=== PATIENT | female | born 1970 | race Caucasian/White ===

== ENCOUNTER 2024-08-24 06:53 | Inpatient (IN) | payer OTHER, SELFPAY ==
[2024-08-23 23:20] VITALS: BMI 35.1
[2024-08-23 23:21] VITALS: BP 153/91
--- NOTE | 2024-08-23 23:56 | ED.GENMED ---
History of Present Illness
General
Chief Complaint: Chest Pain
Source: patient and family
Exam Limitations: none
Time Seen by Provider: 08/23/24 23:52
Nursing documentation reviewed up to this point in time: agreed with
History of Present Illness
History of Present Illness:
54-year-old female, history HTN, had TKR [address] De Los Santos, states she is healing well as far as that goes but at 12:00 this afternoon she developed sudden onset of nausea after her physical therapy. She took Zofran at 1:30 PM with a little
help. She has been nauseous all day (no vomiting) and took another Zofran at 930 this evening. At 8 PM she ate some chicken fried rice and a short while later developed pain under her right shoulder blade through to the same level of her chest as
well as right upper quadrant pain. The pain is constant, now 7/10 and burning. She took 10 mg of oxycodone at 10 PM. Her last bowel movement was 2 days ago prior to her surgery.
Denies fever or chills. Denies chest pain or trouble breathing
Past History
Past History
ED Past Medical History: Negative Asthma, GERD, HTN, Hypercholesterolemia, NIDDM or Hypothyroidism
ED Past Surgical History: Other (Uterus ablation)
Social History
Tobacco: Former smoker
Alcohol: Occasional
Personal:
Living: with family
Review of Systems
Review of Systems
Allergies reviewed?: Yes
All Other Systems: ROS reviewed and negative except as documented in HPI and ROS
Constitutional: Denies fever or chills
Respiratory: Denies trouble breathing
Cardiac: Denies chest pain
ABD/GI: Reports abdominal pain, nausea and anorexia; Denies vomiting, diarrhea, bloody stools or black stools
: Denies dysuria or difficulty voiding
Musculoskeletal: Reports other (Left knee 3 days post surgery healing well)
Neurological: Reports no symptoms
Phy Exam
Physical Exam
Physical Exam:
GENERAL: No acute distress. A&Ox3.
CONSTITUTIONAL: Afebrile.
EYES: clear, conjunctivae normal
ENMT: moist mucus membranes, Pharynx nl
RESPIRATORY: Regular respirations, nonlabored, lungs clear.
CARDIOVASCULAR: Regular rate and rhythm, no murmurs, no rubs.
GI: Soft, obese, no significant tenderness to deep palpation at this time , normal BS
MUSCULOSKELETAL: Moves with ease. Well perfused.
SKIN: Warm, dry, pink
PSYCH: Normal mood and affect. Well kept, interactive and appropriate
NEUROLOGIC: Awake, alert and oriented. No focal neurological deficits
Course
Orders/Labs/Results
Orders:
Orders
08/23/24 23:25
Electrocardiogram (*1) Urgent
Reason for Study: Chest Pain
EKG- Treatment ONCE
08/23/24 23:28
Complete Blood Count/With Diff Urgent
Comprehensive Metabolic Panel Urgent
Lipase Urgent
Troponin I Urgent
08/24/24 00:18
US Abdomen Complete/Upper Urgent
Comment:
Reason For Exam: RUQ and back pain p eating, nausea
08/24/24 02:03
0.9% Sodium Chloride 1000 ml [Nss] 1,000 ml IV BOLUS
HYDROmorphone [Dilaudid] 0.5 mg IV NOW STA
Ondansetron Injectable [Zofran] 4 mg IV NOW STA
08/24/24 02:05
HYDROmorphone [Dilaudid] 0.5 mg .ROUTE .STK-MED ONE
Abnormal Lab Results
08/24/24
00:08
MPV 11.4 H fL
(7.4-10.4)
Abs Immat Gran (auto) 0.2 H 10^3/uL
(0-0.05)
Absolute Monos (auto) 0.8 H 10^3/uL
(0.1-0.6)
Immature Gran % 2.0 H %
(0-0.5)
Lymphocytes % 16.9 L %
(20.5-51.1)
Monocytes % 11.1 H %
(1.7-9.3)
Sodium 133 L mmol/L
(135-145)
BUN 24 H mg/dl
(7-17)
Glucose 163 H mg/dl
(70-99)
Total Protein 6.2 L g/dl
(6.3-8.2)
Lipase 944 H U/L
(23-300)
08/24/24 00:08
08/24/24 00:08
Vital Signs
Initial and Last Documented VS:
Initial Vital Signs
Temp Pulse Resp BP Pulse Ox
98.5 F 79 16 153/91 99
08/23/24 23:21 08/23/24 23:21 08/23/24 23:21 08/23/24 23:21 08/23/24 23:21
Last Documented Vital Signs
Temp Pulse Resp BP Pulse Ox
98.5 F 62 11 148/84 96
08/23/24 23:21 08/24/24 00:45 08/24/24 00:45 08/24/24 00:10 08/24/24 00:45
MDM/Problems Addressed
Differential Diagnosis Includes:
cholecystitis, biliary colic, pancreatitis
MDM/Problems Addressed:
54-year-old female, history HTN, had TKR [address] De Los Santos, states she is healing well as far as that goes but at 12:00 this afternoon she developed sudden onset of nausea after her physical therapy. She took Zofran at 1:30 PM with a little
help. She has been nauseous all day (no vomiting) and took another Zofran at 930 this evening. At 8 PM she ate some chicken fried rice and a short while later developed pain under her right shoulder blade through to the same level of her chest as
well as right upper quadrant pain. The pain is constant, now 7/10 and burning. She took 10 mg of oxycodone at 10 PM. Her last bowel movement was 2 days ago prior to her surgery.
Denies fever or chills. Denies chest pain or trouble breathing
Afebrile, appears moderately uncomfortable due to pain
EKG NSR
CBC normal
CMP with no clinically significant abnormality
Lipase elevated at 944
Preliminary radiology report of upper abdominal ultrasound: Normal gallbladder, no gallstones or sludge, negative Cotto sign, no biliary dilatation. Visualized liver, pancreas, spleen and bilateral kidneys without acute abnormality.
08/24/2024 2:15 AM
Hospitalist notified of admission.
Dx: Acute pancreatitis
*EKG
EKG Intrepretation Date: 08/23/24
Interpretation: normal
Heart Rate: 75
Rate: normal
Rhythm: sinus
Marydel: normal axis
Interval: normal interval
QRS Pattern: normal QRS
Ischemia: no ischemia
ED Attending Note
-
Portions of this chart may have been created with voice recognition software.� Occasional wrong word or��sound alike� substitutions may have occurred due to the inherent limitations of voice recognition software.
Discharge Plan
Departure
Patient Disposition: Admit
Date of Disposition: 08/24/24
Time of Disposition: 02:13
Admit to: Med/Surg
Presentation/result/management discussed w/ accepting MD/DO: Hospitalist
Condition: Fair
Discharge Problem:
Acute pancreatitis
Prescriptions:
No Action
ondansetron HCl [Zofran] 4 mg Tablet
4 mg PO Q6H
aspirin [Adult Low Dose Aspirin] 81 mg Tablet,Delayed Release (Dr/Ec)
81 mg PO DAILY
dexamethasone [Decadron] 4 mg Tablet
4 mg PO BID
docusate sodium [Colace] 100 mg Capsule
100 mg PO TID PRN (Reason: constipation)
celecoxib [Celebrex] 100 mg Capsule
100 mg PO BID
acetaminophen [Tylenol Extra Strength] 500 mg Capsule
1,000 mg PO Q6H PRN (Reason: pain)
oxycodone 5 mg Tablet
5 mg PO Q4H PRN (Reason: pain)
Rx Instructions:
take 1-2 tablets for severe pain every 4-6 hours as needed
Referrals:
UNKNOWN - PT NOT,[facility] [Family Provider] -
Interventions
Interventions:
*Risk Screen - Suicide Last Done: 08/24/24 00:17
*General Assessment Last Done: 08/23/24 23:21
*Neglect/Abuse Screening Last Done: 08/24/24 00:17
*ED COVID-19 Vaccine History Last Done: 08/23/24 23:21
ED- Cardiac Assessment Last Done: 08/24/24 00:16
Discharge Date and Time
Print Language: [place]LAND[place]
[2024-08-24] VITALS (9 sets, daily range): BP systolic 127–154; BP diastolic 66–86; BMI 33.4
[2024-08-24 00:32] LABS: ALT (SGPT) 22 U/L (0-35); AST (SGOT) 23 U/L (14-36); Albumin 3.8 g/dl (3.5-5.0); Alkaline Phosphatase 62 U/L (38-126); Blood Urea Nitrogen 24 mg/dl (7-17); Carbon Dioxide 28 mmol/L (22-30); Chloride 101 mmol/L (98-107); Estimated Creatinine Clearance 112 ml/min; Glucose 163 mg/dl (70-99); Lipase 944 U/L (23-300); Potassium 4.3 mmol/L (3.5-5.1); Sodium 133 mmol/L (135-145); Total Bilirubin 0.9 mg/dl (0.2-1.3); Total Protein 6.2 g/dl (6.3-8.2); eGFR > 60.00
[2024-08-24 00:34] LABS: % Basophils 0.1 % (0-2); % Lymphocytes 16.9 % (20.5-51.1); % Monocytes 11.1 % (1.7-9.3); % Neutrophils 69.9 % (42.2-75.2); Absolute Immature Granulocytes 0.2 10^3/uL (0-0.05); Absolute Lymphocytes 1.3 10^3/uL (1.2-3.4); Absolute Monocytes 0.8 10^3/uL (0.1-0.6); Absolute Neutrophils 5.3 10^3/uL (1.4-6.5); Hematocrit 37.9 % (37.0-47.0); Hemoglobin 12.8 g/dL (12.0-16.0); Mean Corp Hgb Conc. 33.8 g/dL (33.0-37.0); Mean Corpuscular Hgb 30.4 pg (27.0-31.0); Mean Platelet Volume 11.4 fL (7.4-10.4); Nucleated Red Blood Cells % 0 %; Platelet Count 194 10^3/uL (130-400); Red Blood Cell Count 4.21 10^6/uL (4.20-5.40); Red Cell Dist. Width 13.2 % (11.5-14.5); White Blood Cell Count 7.6 10^3/uL (4.8-10.8)
[2024-08-24 00:42] LABS: Troponin I < 0.012 ng/ml
[2024-08-24] MEDS: ZOFRAN 4 MG IV (02:09)
[2024-08-24] MEDS: DILAUDID 0.5 MG IV ×3 (02:09→06:15)
[2024-08-24] MEDS: NSS 1000 IV ×4 (02:10→20:33)
[2024-08-24] MEDS: FLUSH (NSS) 1 FLUSH IV (03:48)
--- NOTE | 2024-08-24 05:27 | HPS.HSE ---
Family Physician
-
Family Physician: INTER[facility] UNKNOWN - PT NOT
Chief Complaint
-
Abd Pain
History of Present Illness
Patient is a 54y F with PMH significant for hypertension who presents to ED complaining of abdominal pain. Patient underwent L TKA at outpatient center ([facility]) on Wednesday. She had been doing well at home and attended her first outpatient PT
session earlier today. Patient began to feel some nausea this afternoon and took PO Zofran around 1:30 PM. She had no emesis. She was able to eat dinner around 8 PM but following this she developed severe epigastric abdominal pain. She took
another ZXofran around 9PM without improvement in her symptoms. She presented to the ED for further evaluation.
Patient has been taking Celebrex, oxycodone and dexamethasone 4mg BID since her surgery on Wednesday.
She notes that she had been taking Advil 'like candy' due to her knee / arthritis pain - though she stopped this one week prior to her surgery.
Patient denies any prior history of similar symptoms, abdominal pains.
Medical History
Past Medical History
Past Medical History: Reports Other
Additional Past Medical History:
Hypertension
Obesity
Past Surgical History: Reports Other
Additional Past Surgical History:
Left TKA (08/21/24)
Social History
Tobacco: Non-smoker
Alcohol: Occasional (Rare)
Drug: None
Personal:
Living: With Family
Family History
Family History: Not pertinent
Allergies / Home Medications
Allergies reflects when Allergies were last updated in [facility].
Home Medications with original date entered in [facility]
Allergy/Medication List:
Allergies
Allergy/AdvReac Type Severity Reaction Status Date / Time
adhesive Allergy Swelling Verified 01/06/20 15:35
Influenza Virus Vaccines Allergy Unknown Verified 08/23/24 23:23
Home Medications
acetaminophen 500 mg capsule 1,000 mg PO Q6H PRN pain 12/19/24
aspirin 81 mg tablet,delayed release (Adult Low Dose Aspirin) 81 mg PO DAILY 08/24/24
celecoxib 100 mg capsule (Celebrex) 100 mg PO BID 08/24/24
dexamethasone 4 mg tablet 4 mg PO BID 08/24/24
docusate sodium 100 mg capsule (Colace) 100 mg PO TID PRN constipation 08/24/24
ondansetron HCl 4 mg tablet 4 mg PO Q6H 08/24/24
oxycodone 5 mg tablet 5 mg PO Q4H PRN pain 08/24/24
Review of Systems
-
History Source: Patient
A 12 point ROS was completed and negative except as noted: Yes
Constitutional: Reports Fatigue; Denies Fever or Chills
EENT: Denies Sore Throat
Respiratory: Denies Cough or Trouble Breathing
Cardiac: Denies Chest Pain or Palpitations
Abdomen/GI: Reports Abdominal Pain, Nausea and Constipated (last BM was AM prior to surgery.); Denies Vomiting or Diarrhea
: Denies Dysuria or Frequency
Musculoskeletal: Reports Joint Pain and Joint Swelling; Denies Edema
Neurological: Denies Dizzy or Headache
Psych: Denies Depression or Anxiety
Physical Exam
Vital Signs
Vital Signs
Temp Pulse Resp BP Pulse Ox
98.5 F 60 13 138/78 96
08/23/24 23:21 08/24/24 05:00 08/24/24 05:00 08/24/24 03:00 08/24/24 05:00
Physical Exam
General: Other (54y F in moderate distress due to pain.)
HEENT: Moist mucous membranes and PERRLA
Respiratory: Clear; No Wheezes, Rales or Rhonchi
Cardiac: S1/S2 and Regular Rhythm; No Murmur
GI: Soft, Non Distended, Normal Bowel Sounds and Other (Mild epigastric tenderness without rebound / guarding. )
Musculoskeletal: No Clubbing, No Cyanosis and Other (No significant edema. L knee site looks good.)
Neuro: AO x 3
Laboratory Results
-
08/24/24 00:08
08/24/24 00:08
Laboratory Results
Total Bilirubin 0.9 mg/dl (0.2-1.3) 08/24/24 00:08
AST 23 U/L (14-36) 08/24/24 00:08
ALT 22 U/L (0-35) 08/24/24 00:08
Alkaline Phosphatase 62 U/L (38-126) 08/24/24 00:08
Troponin I < 0.012 ng/ml 08/24/24 00:08
Lipase 944 U/L (23-300) H 08/24/24 00:08
Impression/Plan
-
A/P: Patient is a 54y F with PMH significant for hypertension who presents to ED complaining of abdominal pain.
Abdominal Pain
- Admit for further evaluation and treatment.
- Differential includes pancreatitis, ulcer disease / gastritis, etc.
- Lipase elevated at 944. US unremarkable.
- CT A/P without significant intra-abdominal pathology. Mild gallbladder distention.
- NPO, IVF support, pain control, antiemetics, etc.
- Hold further Celebrex, dexamethasone, etc.
- IV PPI BID.
- GI evaluation for additional recommendations.
- Follow for clinical improvement.
s/p L TKA (08/21/24)
- Doing well in regards to knee pain, mobility, etc.
- Continue ASA for DVT prophylaxis.
- Encourage ROM exercises, etc.
- PT / OT evals during stay here.
Post-Op Constipation
- Bowel regimen. Follow for results.
Benign Hypertension
- Hold lisinopril acutely.
- Follow BP and resume when appropriate.
DVT Prophylaxis: SCDs and ASA
Code Status: Full
[2024-08-24] MEDS: TORADOL 15 MG IV (05:34)
[2024-08-24 05:55] LABS: Hematocrit 35.8 % (37.0-47.0); Hemoglobin 12.1 g/dL (12.0-16.0); Mean Corp Hgb Conc. 33.8 g/dL (33.0-37.0); Mean Corpuscular Hgb 30.2 pg (27.0-31.0); Mean Corpuscular Volume 89.3 fL (81.0-99.0); Mean Platelet Volume 11.1 fL (7.4-10.4); Platelet Count 179 10^3/uL (130-400); Red Blood Cell Count 4.01 10^6/uL (4.20-5.40); Red Cell Dist. Width 13.1 % (11.5-14.5); White Blood Cell Count 6.7 10^3/uL (4.8-10.8)
[2024-08-24 06:26] LABS: ALT (SGPT) 20 U/L (0-35); AST (SGOT) 21 U/L (14-36); Albumin 3.4 g/dl (3.5-5.0); Alkaline Phosphatase 46 U/L (38-126); Blood Urea Nitrogen 21 mg/dl (7-17); Calcium 8.6 mg/dl (8.4-10.2); Carbon Dioxide 27 mmol/L (22-30); Chloride 102 mmol/L (98-107); Direct Bilirubin 0.1 mg/dl (0.0-0.4); Estimated Creatinine Clearance > 125 ml/min; Glucose 169 mg/dl (70-99); Potassium 4.6 mmol/L (3.5-5.1); Sodium 134 mmol/L (135-145); Total Bilirubin 0.9 mg/dl (0.2-1.3); Total Protein 5.9 g/dl (6.3-8.2); eGFR > 60.00
--- NOTE | 2024-08-24 07:10 | W.PN.HOSP.TC ---
Today's Communication/Plan
-
Continue IV fluids for suspected acute pancreatitis
Hold further Celebrex
Continue IV PPI
Assessment / Plan
Assessment / Plan
Physical Exam
General: Not in acute distress
HEENT: Moist mucous membranes
Respiratory: Clear to Auscultation Bilaterally
Cardiac: S1/S2 and Regular Rhythm
GI: Soft, Non Distended, Normal Bowel Sounds and Other (Mild epigastric tenderness without rebound / guarding. )
Musculoskeletal: No Cyanosis and Other (No significant edema. L knee site looks good.)
Neuro: AAO x 3
Assessment/Plan
Patient is a 54y F with PMH significant for hypertension who presents to ED complaining of abdominal pain.
Abdominal Pain - differential diagnosis includes pancreatitis, ulcer disease / gastritis, etc.
- Lipase elevated at 944 (>3x upper limit of normal), and together with patient's epigastric and back pain, can very well be acute pancreatitis
- US unremarkable.
- CT A/P without significant intra-abdominal pathology. Mild gallbladder distention.
- NPO, IVF support, pain control, antiemetics, etc.
- Hold further Celebrex, patient also has been taking Tylenol, Oxycodone 5 mg Q4H to Q6H prn, Zofran 4 mg Q6H prn for nausea and Colace
- Complete patient's final 2 doses of PO Decadron today
- Continue Aspirin 325 mg daily (x 4 weeks post-op; surgery was on 08/21/24)
- IV PPI BID.
- GI consulted by karis, appreciate evaluation for additional recommendations.
s/p L TKA (08/21/24) with Dr. De Los Santos
- Doing well in regards to knee pain, mobility, etc.
- Continue ASA for DVT prophylaxis.
- Encourage ROM exercises, etc.
- PT / OT evals during stay here.
Post-Op Constipation
- Bowel regimen. Follow for results.
Benign Hypertension
- Hold lisinopril acutely.
- Follow BP and resume when appropriate.
Marked T10-T11 central canal stenosis
- Follow-up outpatient for this
DVT Prophylaxis: SCDs and ASA
Code Status: Full
Anticipated Discharge: 24 - 48 hours
Subjective/Interval History
-
Date of Service: August 24, 2024
Patient was seen and examined. She reported that her abdominal pain has improved since coming in to the hospital, she denied any chest pain or shortness of breath.
Objective Data
-
Labs:
Laboratory Results
08/24/24 08/24/24
00:08 05:43
WBC 7.6 6.7
Hgb 12.8 12.1
Hct 37.9 35.8 L
Plt Count 194 179
Sodium 133 L 134 L
Potassium 4.3 4.6
Chloride 101 102
Carbon Dioxide 28 27
BUN 24 H 21 H
Creatinine 0.7 0.6
Glucose 163 H 169 H
Calcium 9.0 8.6
Total Bilirubin 0.9 0.9
AST 23 21
ALT 22 20
Alkaline Phosphatase 62 46
Vital Signs:
Vital Signs
Temp Pulse Resp BP Pulse Ox
98.5 F 63 12 144/77 93
08/23/24 23:21 08/24/24 06:30 08/24/24 06:30 08/24/24 06:00 08/24/24 06:30
[2024-08-24] MEDS: COLACE 100 MG PO ×2 (09:43→20:33)
[2024-08-24] MEDS: PROTONIX IV 40 MG IV ×2 (09:46→20:34)
[2024-08-24] MEDS: NSS (PRESERVATIVE FREE) 10 ML IV ×2 (09:46→20:34)
[2024-08-24] MEDS: TYLENOL 1000 MG PO ×2 (09:56→14:07)
[2024-08-24] MEDS: DECADRON 4 MG PO ×2 (10:29→20:34)
[2024-08-24] MEDS: ASPIRIN PO (10:36)
[2024-08-24] MEDS: ASPIR LOW (ENTERIC COATED) 81 MG PO (10:41)
--- NOTE | 2024-08-24 11:09 | CON.GI ---
Addendum entered and electronically signed by Rodney Beyer DO 08/24/24 15:56:
I saw and examined the patient.
The TACTICAL INTELLIGENCE OFFICER's note was reviewed and I agree with the note.
Comment: Ms Mullins is a 54 y.o female with past medical history of HTN and recent TKR two days ago who presented to the ED with epigastric abdominal pain. Patient denies any previous episodes of prior abdominal pain in the past. She was in her
[facility] and recently underwent a L TKR as an outpatient earlier on Wednesday, 08/21. She was felt to be doing well, however after working with PT she developed worsening upper abdominal pain, nausea and radiating symptoms into her back and around her
right/left sides. She was able to eat dinner in the evening however her epigastric abdominal pain recurred and did not deric with her p.o anti-emetics thus prompting her to come to the ED for further evaluation. She has been taking Advil 'like
candy' but denies any melena and/or bloody stools. She also stopped these over one week ago prior to her surgery. In the ED, labs notable for BUN 24, In Service Education Teacher 0.7, normal LFTs and elevated lipase 944. CBC without leukocytosis with WBC 7.6, Hgb 12.8, and
plts 194. Abd US (-) for cholelithiasis, gallbladder wall thickening or biliary tract dilatation and visualized portions of the pancreas without any focal abnormalities. CT Abd/pelvis w/ IV contrast revealed a prominent gallbladder without
cholelithiasis or biliary ductal dilatation and a normal appearing pancreas. Based on her symptoms and repeat lipase (3 x ULN), meets criteria for pancreatitis despite unremarkable prior imaging. Unclear etiology and denies any significant EtOH use
and Abd US (-) for stones. Calcium wnl. No recent lipids. No obvious offending chronic medications causes although did receive prior corticosteroids thus drug-induced pancreatitis is a possibility. However, given that this is her first episode and
age > 40 patient would benefit from an eventual MRI/MRCP as an outpatient in 6-8 weeks. Suspect idiopathic, mild acute pancreatitis given her labs and symptoms. Otherwise, appears her symptoms are improving and tolerating clears without difficulty.
Although she has risk factors for NSAID-induced PUD and recent steroids, given her stable H/h and without any melena would defer any plans for an endoscopic evaluation at this time.
Recommendations:
- Tolerating CLD, may ADAT up to low-fat diet
- Empiric PPI 40 mg BiD given recent NSAIDs
- Obtain lipid panel with AM labs
- Would benefit from eventual MRI/MRCP WWO contrast in 6-8 weeks after resolution of pancreatitis for structural evaluation and r/o any pancreatic cystic lesion/mass
- No plans for an EGD at this time, further patient wishes to hopefully go home tomorrow
- Pain control and IV anti-emetics PRN
- If ongoing improvement into tomorrow, agree with outpatient f/u with GI
- Avoidance of all NSAIDs
- Rest of care per primary team
Discussed with primary internal medicine team this afternoon. GI team will continue to follow while inpatient.
Addendum entered and electronically signed by JAMARCUS Olivas 08/24/24 14:04:
add to below if not improving and persistent symptoms consider EGD to excluded PUD with NSAID/steroid use
Original Note:
Consultation
-
Date/Time Consultation Requested: 08/24/24 0700
Date/Time Consultation Performed: 08/24/24 1100
Requesting Provider: Ricky Wynn DO
Performing Provider: JAMARCUS Westfall, Rodney Beyer DO
Reason for Consultation: elevated lipase
Medical History
Chief Complaint / HPI
Chief Complaint: nausea/shoulder pain
History of Present Illness:
Pt is a 54yo with hx HTN, uterine ablation and TKR 2 days ago with admission with onset of nausea with physical therapy. She states after nausea she also developed pain in upper abdomen into back and right shoulder that is improving today. She
admits to increased NSAID use prior to surgery and combination of Celebrex, ASA, Decadron and Oxycodone taken post -op. She has BM Wednesday prior to surgery but no stools since darren time. On admission hbg 12 but noted normal LFT's with lipase [address] with Somewhat prominent gallbladder without stones. If there is a clinical concern for cholelithiasis, suggest ultrasound for more complete evaluation.Us abdomen with No evidence of cholelithiasis, gallbladder wall thickening
or biliary tract dilatation. visualized portions of head/body of pancreas demonstrate no focal abnormality No hx gallbladder issues in past. Denies GPL1 use for wt loss.
Pt also admit to recent 40 lbs intentional wt loss prior to surgery. She otherwise denied dysphagia, vomiting, diarrhea, constipation, rectal bleeding. change in stool or urine color. No hx EGD or colonoscopy in past.
Past Medical History
Past Medical History: HTN
Past Surgical History: Gynecological (uterine ablation)
Social History
Tobacco: Former Smoker
Alcohol: Occasional
Drug: None
Personal:
Living: With Family
Family History
Family History: Other (no family hx colon Ca or polyps)
Allergies / Home Medications
Allergy/AdvReac Type Severity Reaction Status Date / Time
adhesive Allergy Swelling Verified 01/06/20 15:35
Influenza Virus Vaccines Allergy Unknown Verified 08/23/24 23:23
�Medication �Instructions �Recorded
acetaminophen 500 mg capsule 1,000 mg PO Q6H PRN pain 08/24/24
aspirin 81 mg tablet,delayed 81 mg PO DAILY Blood Clot 08/24/24
release (Adult Low Dose Aspirin) Prevention/Tx
celecoxib 100 mg capsule (Celebrex) 100 mg PO BID Pain 08/24/24
dexamethasone 4 mg tablet 4 mg PO .BID FOR 2 MORE DOSE 08/24/24
inflammation
docusate sodium 100 mg capsule 100 mg PO TID PRN constipation 08/24/24
(Colace)
lisinopril 10 mg tablet 5 mg PO DAILY 08/24/24
ondansetron HCl 4 mg tablet 4 mg PO Q6HPRN PRN nausea 08/24/24
oxycodone 5 mg tablet 5 mg PO Q4H PRN pain 08/24/24
Review of Systems
-
History Source: Patient and Family
Constitutional: Reports Weight Loss ( 40 lbs prior to surgery )
EENT: Reports No Symptoms
Respiratory: Reports No Symptoms
Cardiac: Reports No Symptoms
Abdomen/GI: Reports Abdominal Pain and Nausea
Musculoskeletal: Reports Other (shoulder/back pain , s/p TKR with some post-op pain )
Neurological: Reports No Symptoms
Endocrine: Reports No Symptoms
Vital Signs
Temp Pulse Resp BP Pulse Ox
98.5 F 63 12 144/77 93
08/23/24 23:21 08/24/24 06:30 08/24/24 06:30 08/24/24 06:00 08/24/24 06:30
Physical Exam
Exam
General: Well Developed, Well Nourished and No Apparent Distress
HEENT: Normocephalic and Anicteric
Respiratory: Clear
Cardiac: Regular Rhythm
GI: Soft, Non Distended and Tender (minimal abdominal pain )
Musculoskeletal: No Clubbing, No Cyanosis and Other (right TKR with intact staple mild swelling minimal bruising)
Skin: Warm and Dry
Neuro: Awake, Alert and AO x 3
Psych: Calm
Results
WBC 6.7 10^3/uL (4.8-10.8) 08/24/24 05:43
Hgb 12.1 g/dL (12.0-16.0) 08/24/24 05:43
Hct 35.8 % (37.0-47.0) L 08/24/24 05:43
MCV 89.3 fL (81.0-99.0) 08/24/24 05:43
Plt Count 179 10^3/uL (130-400) 08/24/24 05:43
Absolute Neuts (auto) 5.3 10^3/uL (1.4-6.5) 08/24/24 00:08
Sodium 134 mmol/L (135-145) L 08/24/24 05:43
Potassium 4.6 mmol/L (3.5-5.1) 08/24/24 05:43
Chloride 102 mmol/L (98-107) 08/24/24 05:43
Carbon Dioxide 27 mmol/L (22-30) 08/24/24 05:43
BUN 21 mg/dl (7-17) H 08/24/24 05:43
Creatinine 0.6 mg/dL (0.6-1.0) 08/24/24 05:43
Calcium 8.6 mg/dl (8.4-10.2) 08/24/24 05:43
Total Bilirubin 0.9 mg/dl (0.2-1.3) 08/24/24 05:43
AST 21 U/L (14-36) 08/24/24 05:43
ALT 20 U/L (0-35) 08/24/24 05:43
Alkaline Phosphatase 46 U/L (38-126) 08/24/24 05:43
Lipase 944 U/L (23-300) H 08/24/24 00:08
Diagnostic Image Results:
08/24/24 CT Abd/Pel (IV only)-DH only
Somewhat prominent gallbladder without stones. If there is a clinical concern for cholelithiasis, suggest ultrasound for more complete evaluation.
Descending colon and sigmoid diverticulosis. Unremarkable appendix. No intestinal obstruction or free air.
08/24/24 US abdomen
No evidence of cholelithiasis, gallbladder wall thickening or biliary tract dilatation.
visualized portions of head/body of pancreas demonstrate no focal abnormality.
Prior GI Procedures:
EGD:
none
Colonoscopy:
none
Assessment / Plan
-
Pt is a 54yo with hx HTN, uterine ablation and TKR 2 days ago with admission with onset of nausea with physical therapy. She states after nausea she also developed pain in upper abdomen into back and right shoulder that is improving today. She
admits to increased NSAID use prior to surgery and combination of Celebrex, ASA, Decadron and Oxycodone taken post -op. She has BM Wednesday prior to surgery but no stools since that time. On admission hbg 12 but noted normal LFT's with lipase 944
with repeat 688. . CT with Somewhat prominent gallbladder without stones and recommended US. Us abdomen with No evidence of cholelithiasis, gallbladder wall thickening or biliary tract dilatation. visualized portions of head/body of pancreas
demonstrate no focal abnormality No hx gallbladder issues in past. Denies GPL1 use for wt loss. Pt also admit to recent 40 lbs intentional wt loss prior to surgery.
-epigastric/back/shoulder pain with nausea
-mild lipase elevation
-CT with prominent GB without stones
-s/p TKR 08/21
-constipation post surgery
-increased NSAID use
-recent wt loss
other med problems:
-HTN
-uterine ablation
PLAN:etiology of symptoms unclear doubt true pancreatitis as minimal lipase elevation and no finding of pancreatitis on CT or US
may be gastritis with multiple medication post-op, PUD as admits to increased NSAID use prior to surgery, constipation related, biliary colic as recent 40 lb wt loss., ? muscular with recent PT regiment post TKR, vs other
repeat lipase 688 trending down and pain improved
will trial low fat diet
agree with PPI and would continue to NSAID course completed
add miralax daily with no stools since surgery
pain control per hospitalist
ok to resume Lisinopril from GI standpoint -- pt has been on for years and recently lowered dose with wt loss
will follow
-
-
Thank you for consultation and allowing me to participate in the patient's care. Please call the street contractor GI physician during the after hours with any questions or concerns.
[2024-08-24 12:00] LABS: Lipase 688 U/L (23-300)
[2024-08-24] MEDS: ASPIR LOW (ENTERIC COATED) 244 MG PO (12:19)
[2024-08-24] MEDS: MIRALAX 17 GRAMS PO (14:03)
[2024-08-24] MEDS: ZESTRIL 5 MG PO (14:50)
[2024-08-24] MEDS: ROXICODONE 5 MG PO ×2 (14:50→20:33)
--- NOTE | 2024-08-24 17:50 | PTCARENOTE ---
Pt arrived to unit from ED. Ambulated to bed with rolling walker and minimal assistance. Pre-admission (L) TKA from Wednesday, dressing C/D/I. NSS @ 200ml/hr. Stating a decrease in abdominal pain. Advanced to Low Fat diet. Pt stating concern about knee
pain returning and a desire to maintain outpatient pain schedule. Dr. Lopez notified. New order for PRN Roxicodone 5mg Q4H acknowledged and administered. Pt walking around hallway with daughter at side, denying abdominal pain, but only has
trialed water at this time.
[2024-08-24] MEDS: MYLICON 80 MG PO (23:38)
[2024-08-24] MEDS: SENOKOT 17.2 MG PO (23:43)
[2024-08-25] MEDS: NSS 1000 IV ×2 (01:27→05:50)
[2024-08-25] MEDS: TORADOL 15 MG IV (01:48)
[2024-08-25 06:52] LABS: Hematocrit 35.6 % (37.0-47.0); Hemoglobin 12.1 g/dL (12.0-16.0); Mean Corpuscular Hgb 30.9 pg (27.0-31.0); Mean Platelet Volume 11.3 fL (7.4-10.4); Platelet Count 176 10^3/uL (130-400); Red Blood Cell Count 3.91 10^6/uL (4.20-5.40); Red Cell Dist. Width 13.1 % (11.5-14.5); White Blood Cell Count 6.2 10^3/uL (4.8-10.8)
[2024-08-25 07:17] LABS: ALT (SGPT) 18 U/L (0-35); AST (SGOT) 19 U/L (14-36); Albumin 3.2 g/dl (3.5-5.0); Alkaline Phosphatase 45 U/L (38-126); Blood Urea Nitrogen 20 mg/dl (7-17); Calcium 8.6 mg/dl (8.4-10.2); Carbon Dioxide 28 mmol/L (22-30); Chloride 103 mmol/L (98-107); Estimated Creatinine Clearance > 125 ml/min; Glucose 159 mg/dl (70-99); HDL Cholesterol 54 mg/dl; LDL Cholesterol, Calculated 111 mg/dl; Lipase 207 U/L (23-300); Potassium 4.8 mmol/L (3.5-5.1); Sodium 136 mmol/L (135-145); Total Cholesterol 183 mg/dl (50-199); Total Protein 5.4 g/dl (6.3-8.2); Triglyceride 94 mg/dl (10-149); Very Low Density Lipoprotein 18 mg/dl (0-30); eGFR > 60.00
[2024-08-25 08:11] VITALS: BP 155/74
--- NOTE | 2024-08-25 08:45 | W.PN.HOSP.TC ---
Addendum entered and electronically signed by Darren Lopez MD 08/25/24 12:34:
Hyponatremia
Original Note:
Today's Communication/Plan
-
Discharge today
Assessment / Plan
Assessment / Plan
Physical Exam
General: Not in acute distress
HEENT: Moist mucous membranes
Respiratory: Clear to Auscultation Bilaterally
Cardiac: S1/S2 and Regular Rhythm
GI: Soft, Non Distended, Normal Bowel Sounds and Nontender
Musculoskeletal: No Cyanosis
Neuro: AAO x 3
Assessment/Plan
Patient is a 54y F with PMH significant for hypertension who presents to ED complaining of abdominal pain.
Abdominal Pain - differential diagnosis includes pancreatitis, ulcer disease / gastritis
- Lipase elevated at 944 (>3x upper limit of normal), and together with patient's epigastric and back pain, can very well be acute pancreatitis
- US unremarkable.
- CT A/P without significant intra-abdominal pathology. Mild gallbladder distention.
- Low fat diet
- Okay to continue Celebrex (as patient is on PPI BID), patient also has been taking Tylenol, Oxycodone 5 mg Q4H to Q6H prn, Zofran 4 mg Q6H prn for nausea and Colace
- Continue Aspirin 325 mg daily (x 4 weeks post-op; surgery was on 08/21/24)
- PO PPI BID on discharge
- Continue Miralax/bowel regimen
- GI consulted by karis, appreciate evaluation for additional recommendations.
- Eventual MRI/MRCP WWO contrast in 6-8 weeks after resolution of pancreatitis for structural evaluation and r/o any pancreatic cystic lesion/mass
- Outpatient follow-up with GI
s/p L TKA (08/21/24) with Dr. De Los Santos
- Doing well in regards to knee pain, mobility, etc.
- Continue ASA for DVT prophylaxis.
- Encourage ROM exercises, etc.
- Completed home Decadron course already
- PT / OT evals during stay here.
Post-Op Constipation
- Bowel regimen.
Benign Hypertension
- Continue Lisinopril
Marked T10-T11 central canal stenosis
- Follow-up outpatient for this
DVT Prophylaxis: SCDs and ASA
Code Status: Full
More than 30 minutes spent in discharge including
Final examination of the patient
Summarizing hospital stay
Instructions for continuing care to all relevant caregivers
Preparation of discharge records, prescriptions, and referral forms
Total time spent (in minutes): 42
Anticipated Discharge: Today
Subjective/Interval History
-
Date of Service: August 25, 2024
Patient was seen and examined. She reported her abdominal and back pain have resolved, she is urinating well, denied any chest pain, SOB, or fever, and stated that she is in agreement with going home today.
Objective Data
-
Labs:
Laboratory Results
08/25/24
06:18
WBC 6.2
Hgb 12.1
Hct 35.6 L
Plt Count 176
Sodium 136
Potassium 4.8
Chloride 103
Carbon Dioxide 28
BUN 20 H
Creatinine 0.6
Glucose 159 H
Calcium 8.6
Total Bilirubin 1.0
AST 19
ALT 18
Alkaline Phosphatase 45
Vital Signs:
Vital Signs
Temp Pulse Resp BP Pulse Ox
98.3 F 68 16 155/74 99
08/25/24 08:11 08/25/24 08:11 08/25/24 08:11 08/25/24 08:11 08/25/24 08:11
I&O
08/24/24 08/25/24 08/26/24
06:59 06:59 06:59
Intake Total 2640 / 2640
Balance 2640 / 2640
[2024-08-25] MEDS: COLACE 100 MG PO (08:46)
[2024-08-25] MEDS: MIRALAX 17 GRAMS PO (08:46)
[2024-08-25] MEDS: PROTONIX IV 40 MG IV (08:46)
[2024-08-25] MEDS: ASPIRIN 325 MG PO (08:46)
[2024-08-25] MEDS: NSS (PRESERVATIVE FREE) 10 ML IV (08:46)
[2024-08-25] MEDS: ZESTRIL 5 MG PO (08:47)
[2024-08-25] MEDS: NSS IV ×2 (08:47→12:24)
--- NOTE | 2024-08-25 11:16 | PN.CDI ---
CDI
- -
CDI:
Physician Documentation Request
Admit Date: 08/24/24 06:53
Dear Doctor John,
Clinical Indicators:
Patient admitted with suspected acute pancreatitis.
Pain scale ratings: 3-7
IVF NSS 2400 ml
Sodium level:
08/24/24
00:08
Sodium 133 L
Based on the above, could you clarify in the progress notes, the appropriate diagnosis, if significant, that supports the above abnormalities and additional evaluation, monitoring and/or treatment rendered:
Hyponatremia
Abnormal lab value, clinically insignificant
Other
Use of terms such as suspected, likely, concern for, or probable (associated with a specific diagnosis that is being evaluated, monitored, or treated as if it exists) are acceptable and can be coded in the inpatient setting, when documented at the
time of discharge.
Thank you,
Christen Vasquez RN BSN
CDI Specialist
available via tiger text
Please use your independent medical judgment in providing your response.
[2024-08-25] MEDS: TYLENOL 1000 MG PO (11:22)
[2024-08-25] MEDS: MYLICON 80 MG PO (11:22)
--- NOTE | 2024-08-25 11:31 | CM ---
CM reviewed medical records. CM met with patient and daughter in room. Patient confirmed demographics. Patient denies history of SNF. Patient was just recently discharged from [facility] to outpatient PT. Patient confirmed that she has a PCP.
Patient uses [facility] for medication services.
PLAN: Home no needs.
--- NOTE | 2024-08-25 12:50 | W.DCSUMMARY ---
Discharge Summary
Discharge Data
Date of Admission: 08/24/24
Date of Discharge: 08/25/24
Total time spent discharging patient (in min): 42
-
Pending Results: No
Hospital Course
54 y/o female with past medical history of hypertension and recent left total knee replacement, who presented with epigastric abdominal pain. Abdominal ultrasound was negative for cholelithiasis, gallbladder wall thickening or biliary tract
dilatation and visualized portions of the pancreas without any focal abnormalities. CT Abd/pelvis w/ IV contrast showed a prominent gallbladder without cholelithiasis or biliary ductal dilatation and a normal appearing pancreas. Her lipase was found
to be elevated at 944 and she was diagnosed with acute pancreatitis (although her imaging was negative for pancreatitis, she met 2 out of 3 criteria), as well as possible gastritis from recent NSAIDs and steroid use following her orthopedic surgery.
Patient was started on intravenous proton pump inhibitor and given intravenous fluids, and her symptoms resolved. She denied significant alcohol use of history of gallstones, and calcium level was normal. Lipids level were okay, and the only
possibility was possibly steroid-induced pancreatitis. Gastroenterology was consulted at the time of admission, and given that this was patient's first episode and age > 40 y/o, it was recommended patient get eventual MRI/MRCP as an outpatient in
6-8 weeks, and even though patient had risk factors for NSAID-induced PUD and recent steroids, given her stable hemoglobin without any melena, endoscopic evaluation was deferred. On the day of discharge, communication was done between hospitalist
and gastroenterology and gastroenterology mentioned that it was okay to continue patient's current NSAIDs as prescribed by her orthopedics surgeon, as long as she continued to take Protonix 40 mg BID medication. Patient was doing well as stable for
discharge.
Discharge Plan
-
Patient Disposition: Home (Routine Discharge)
Discharge Diagnosis/Procedures: Hyponatremia
Abdominal Pain - IMPROVED - suspected from pancreatitis, ulcer disease/gastritis
Status post Left Total knee arthroplasty (08/21/24) with Dr. De Los Santos
Post-Op Constipation
Benign Hypertension
Marked T10-T11 central canal stenosis
Condition: Good
Diet: As tolerated, Low Fat and Restrict fluids to 48 oz
Activity: As tolerated
Driving Restrictions: As prior to admission
Activity Restrictions/Additional Instructions:
It is very important for you to follow-up with your orthopedic surgeon and also to follow-up with gastroenterology.
Patient already has Aspirin 325 mg daily at home.
Instructions: Pantoprazole
Referrals:
Rodney Beyer DO [Active] - (Follow up 3-[address] Beyer or [employer]. Consider MRI in 6-8 weeks with possible pancreatitis noted on admission with elevated lipase. call [phone] ext [phone] to arrange )
UNKNOWN - PT NOT,INTERVIEWE [Family Provider] -
Brandon De Los Santos MD [Active] - in less than 1 week (Hospital Follow-Up and Knee Surgery Follow-Up)
Additional Discharge Medication Instructions: Pantoprazole, Polyethylene Glycol and Senna Laxative are new medications.
You need to continue Pantoprazole ONLY UNTIL you finish taking Aspirin and Celebrex.
Dexamethasone has been stopped because you completed the course of Dexamethasone that your orthopedic surgeon prescribed.
Prescriptions:
New
aspirin 325 mg Tablet
325 mg PO DAILY Qty: 25 0RF
polyethylene glycol 3350 17 gram Powder In Packet
17 g PO DAILY Qty: 30 1RF
pantoprazole 40 mg tablet,delayed release (DR/EC)
40 mg PO Q12H Qty: 60 0RF
sennosides [Senna Laxative] 8.6 mg Tablet
17.2 mg PO HS Qty: 60 0RF
Continued
ondansetron HCl 4 mg Tablet
4 mg PO Q6HPRN PRN (Reason: nausea)
docusate sodium [Colace] 100 mg Capsule
100 mg PO TID PRN (Reason: constipation)
celecoxib [Celebrex] 100 mg Capsule
100 mg PO BID
acetaminophen 500 mg Capsule
1,000 mg PO Q6H PRN (Reason: pain)
oxycodone 5 mg Tablet
5 mg PO Q4H PRN (Reason: pain)
Rx Instructions:
take 1-2 tablets for severe pain every 4-6 hours as needed
lisinopril 10 mg tablet
5 mg PO DAILY
Discontinued
aspirin [Adult Low Dose Aspirin] 81 mg Tablet,Delayed Release (Dr/Ec)
81 mg PO DAILY
dexamethasone [Decadron] 4 mg Tablet
4 mg PO .BID FOR 2 MORE DOSE
Discharge Orders:
Discharge Patient (As Directed); Ordered 08/25/24
Ordered By: Darren Lopez
Discharge Date and Time
Discharge Date/Time: 08/25/24 14:49
Print Language: IRISH
== END 2024-08-25 14:49 | disposition home or self-care (01) | DRG 391 ==
LOC: 1 ACUTE 06:53
PROVIDERS: Nurse Practitioner Adult Health; ADMITTING PHYSICIAN Hospitalist; ATTENDING PHYSICIAN Hospitalist; CONSULT PHYSICIAN Student in an Organized Health Care Education/Training Program; EMERGENCY PHYSICIAN Emergency Medicine
DX: K29.60 Other gastritis without bleeding (principal); K85.30 Drug induced acute pancreatitis without necrosis or infection; E87.1 Hypo-osmolality and hyponatremia; M48.04 Spinal stenosis, thoracic region; K59.09 Other constipation; T38.0X5A Adverse effect of glucocorticoids and synthetic analogues, initial encounter; E66.9 Obesity, unspecified; Z68.35 Body mass index [BMI] 35.0-35.9, adult; Z96.652 Presence of left artificial knee joint; Z88.7 Allergy status to serum and vaccine; Z87.891 Personal history of nicotine dependence; Z79.82 Long term (current) use of aspirin
CPT/HCPCS: 74177; 76700; 80048; 80053; 80061; 80076; 83690; 83735; 84484; 85025; 85027; 93005; 96361; 96374; 96375; 96376; 97165; 99285; Q9967